=== PATIENT | female | born 1960 | race African-American/Black ===

== ENCOUNTER 2018-05-10 00:32 | Emergency (ER) | payer MEDICAID ==
[~2018-05-10] VITALS: Ht 165.1 cm; Wt 96.0 kg
[~2018-05-10 00:32] MED LIST: ESOM20CA PO; TRAM50TA3 PO
[2018-05-10 01:02] VITALS: BP_SYST 93
[2018-05-10] MEDS ORDERED: DIPHENHYDRAMINE 50MG CAPSULE PO ONE (01:30)
[2018-05-10] MEDS ORDERED: PREDNISONE 20MG TABLET PO ONE (01:30)
[2018-05-10] MEDS ORDERED: FAMOTIDINE 20MG TABLET PO ONE (01:30)
== END 2018-05-10 03:33 | disposition home or self-care (01) ==
LOC: ER 00:32
DX: T78.1XXA Other adverse food reactions, not elsewhere classified, initial encounter (principal); X58.XXXA Exposure to other specified factors, initial encounter
CPT/HCPCS: 99284; J7512; Q0163

== ENCOUNTER 2024-03-25 09:56 | Emergency (ER) | payer MEDICAID, OTHER ==
[~2024-03-25] VITALS: Ht 167.6 cm; Wt 90.0 kg
[2024-03-25 10:04] VITALS: O2SAT 100
[2024-03-25 10:51] LABS: BASOPHILS % 0.7 % (0.0-2.0); EOSINOPHILS % 0.1 % (0.0-5.0); HEMATOCRIT. 45.6 % (36.0-48.0); HEMOGLOBIN. 15.2 g/dL (12.0-16.0); LYMPHOCYTES % 19.1 % (20.0-50.0); MEAN CORPUSCULAR HEMOGLOBIN 29.4 pg (28.0-32.0); MEAN CORPUSCULAR HGB CONC 33.4 g/dL (31.0-37.0); MEAN CORPUSCULAR VOLUME 87.9 fL (81.0-99.0); MEAN PLATELET VOLUME 7.5 fl (7.4-10.4); MONOCYTES % 4.9 % (2.0-8.0); NEUTROPHILS % 75.2 % (40.0-76.0); PLATELET 475 x1000/uL (130-400); RED BLOOD CELL COUNT 5.19 mill/uL (4.2-5.4); RED CELL DISTRIBUTION WIDTH 13.8 % (11.6-14.6); WHITE BLOOD COUNT 13.2 x1000/uL (4.5-11.0)
[2024-03-25 11:13] LABS: CARBON DIOXIDE 23 mEq/L (21-32); CHLORIDE 109 mEq/L (98-107); POTASSIUM 3.7 mEq/L (3.5-5.1); SODIUM 140 mEq/L (136-145)
[2024-03-25 11:14] LABS: CALCIUM 10.7 mg/dL (8.7-10.4)
[2024-03-25 11:18] LABS: CREATININE 0.9 mg/dL (0.6-1.0)
[2024-03-25 11:19] LABS: GLUCOSE 200 mg/dL (70-105); UREA NITROGEN BLOOD 10 mg/dL (9-23)
[2024-03-25 11:25] LABS: TROPONIN I HIGH SENSITIVITY < 4 ng/L (3.0-34)
[2024-03-25] MEDS ORDERED: MAGNESIUM/ALUMINUM HYDROXIDE/SIMETHICONE 30ML UDC PO STA (12:25)
[2024-03-25] MEDS ORDERED: PANTOPRAZOLE 40MG DR TABLET PO STA (12:25)
[2024-03-25] MEDS ORDERED: ACETAMINOPHEN 325MG TABLET PO ONE (12:30)
[2024-03-25] MEDS ORDERED: ONDANSETRON 4MG ODT PO ONE (12:30)
[2024-03-25] MEDS ORDERED: ASPIRIN 325MG EC TABLET PO ONE (12:30)
[2024-03-25 13:05] LABS: TROPONIN I HIGH SENSITIVITY < 4 ng/L (3.0-34)
[2024-03-25 13:06] LABS: CLARITY URINE CLEAR (CLEAR); COLOR URINE YELLOW (YELLOW); GLUCOSE URINE 2+ (NEGATIVE); KETONES URINE 1+ (NEGATIVE); LEUKOCYTE ESTERASE URINE NEGATIVE (NEGATIVE); NITRITE URINE NEGATIVE (NEGATIVE); OCCULT BLOOD URINE 2+ (NEGATIVE); PROTEIN URINE 2+ (NEGATIVE); SPECIFIC GRAVITY URINE 1.031 (1.005-1.030); UROBILINOGEN URINE 0.2 E.U./dL (0.2-1.0)
[2024-03-25 13:38] LABS: BACTERIA URINE TRACE; SQUAMOUS EPITHELIAL CELL URINE 2+ /lpf (RARE/1+); WBC URINE 0-2 /hpf (0-2); YEAST URINE NONE SEEN
[2024-03-25] MEDS ORDERED: MAG-55 MT (17:55)
[2024-03-25] MEDS ORDERED: PANT40TA51 MT (17:55)
[2024-03-25 19:35] VITALS: BP 178/88; PULSE 89; RESP 16; TEMP 98.2
[2024-03-25] MEDS: ONDANSETRON 4MG ODT PO NR (19:52)
[2024-03-25] MEDS: ASPIRIN 325MG EC TABLET PO NR (19:52)
[2024-03-25] MEDS: MAGNESIUM/ALUMINUM HYDROXIDE/SIMETHICONE 30ML UDC PO NR (19:52)
[2024-03-25] MEDS: ACETAMINOPHEN 325MG TABLET PO NR (19:52)
[2024-03-25] MEDS: PANTOPRAZOLE 40MG DR TABLET PO NR (19:52)
== END 2024-03-25 19:56 | disposition home or self-care (01) ==
LOC: ER 09:56
DX: R10.13 Epigastric pain (principal)
CPT/HCPCS: 99285; 74176; 71045; 80048; 81003; 83880; 83690; 85025; 84484; 36415; 93005; Q0162

== ENCOUNTER 2025-03-26 11:25 | Emergency (ER) | payer MEDICARE, OTHER ==
[~2025-03-26] VITALS: Ht 165.1 cm; Wt 80.0 kg
[~2025-03-26 11:25] MED LIST changes: +MAG-55 MT; +PANT40TA51 MT
[2025-03-26 11:33] VITALS: O2SAT 100
[2025-03-26 12:00] LABS: BASOPHILS % 0.1 % (0.0-2.0); EOSINOPHILS % 0.3 % (0.0-5.0); HEMATOCRIT. 45.1 % (36.0-48.0); HEMOGLOBIN. 15.1 g/dL (12.0-16.0); LYMPHOCYTES % 12.2 % (20.0-50.0); MEAN PLATELET VOLUME 7.5 fl (7.4-10.4); MONOCYTES % 6.0 % (2.0-8.0); NEUTROPHILS % 81.4 % (40.0-76.0); PLATELET 462 x1000/uL (130-400); RED BLOOD CELL COUNT 5.32 mill/uL (4.2-5.4); RED CELL DISTRIBUTION WIDTH 14.1 % (11.6-14.6)
[2025-03-26 12:22] LABS: CREATININE 0.8 mg/dL (0.6-1.0); UREA NITROGEN BLOOD 10 mg/dL (9-23)
[2025-03-26 12:23] LABS: ASPARTATE AMINOTRANSFERASE 15 IU/L (<34)
[2025-03-26 12:24] LABS: BILIRUBIN DIRECT 0.2 mg/dL (<=3.0); BILIRUBIN TOTAL 0.6 mg/dL (0.1-1.0); PROTEIN TOTAL 8.3 g/dL (6.0-8.3)
[2025-03-26] MEDS: SODIUM CHLORIDE 0.9% 1,000 ML IV ONE (12:55)
[2025-03-26] MEDS: KETOROLAC 30MG/ML VIAL IV STA (12:56)
[2025-03-26] MEDS: ONDANSETRON HCL 4MG/2ML INJ IV STA (12:56)
[2025-03-26 15:10] LABS: CLARITY URINE CLEAR (CLEAR); COLOR URINE YELLOW (YELLOW); GLUCOSE URINE TRACE (NEGATIVE); KETONES URINE TRACE (NEGATIVE); LEUKOCYTE ESTERASE URINE NEGATIVE (NEGATIVE); NITRITE URINE NEGATIVE (NEGATIVE); OCCULT BLOOD URINE 2+ (NEGATIVE); PH URINE 6.5 (4.5-8.0); PROTEIN URINE 3+ (NEGATIVE); SPECIFIC GRAVITY URINE 1.022 (1.005-1.030); UROBILINOGEN URINE 0.2 E.U./dL (0.2-1.0)
[2025-03-26] MEDS: HYDRALAZINE 20MG/ML VIAL IV ONE (15:43)
[2025-03-26] MEDS: MORPHINE SULFATE 4 MG/ML INJ (FOR IV/IM USE) IV ONE (15:43)
[2025-03-26 16:01] LABS: BACTERIA URINE 1+; SQUAMOUS EPITHELIAL CELL URINE FEW /lpf (RARE/1+); WBC URINE 0-2 /hpf (0-2)
[2025-03-26] MEDS ORDERED: IBUP-2029 MT (16:40)
[2025-03-26] MEDS ORDERED: TRAM50TA3 PO (16:40)
[2025-03-26] MEDS: LABETALOL 5MG/ML 4ML INJ IV ONE (17:32)
[2025-03-26 17:38] VITALS: BP 196/101; PULSE 87; RESP 20; TEMP 36.8; O2SAT 100
== END 2025-03-26 18:14 | disposition home or self-care (01) ==
LOC: ER 11:25
DX: D25.9 Leiomyoma of uterus, unspecified (principal); R10.32 Left lower quadrant pain; I10 Essential (primary) hypertension; K43.9 Ventral hernia without obstruction or gangrene; K57.30 Diverticulosis of large intestine without perforation or abscess without bleeding; N28.1 Cyst of kidney, acquired; Z79.899 Other long term (current) drug therapy; Z87.891 Personal history of nicotine dependence
CPT/HCPCS: 99285; 74176; 96374; 96375; 96361; 80076; 80048; 81003; 83690; 85025; 36415; J1885; J0360; J3490; J2405; J2270; J7030; A4606